=== PATIENT | male | born 1935 ===

== ENCOUNTER 2018-07-20 16:22 | Outpatient (REF) | payer MEDICARE, SELFPAY ==
[2018-07-20 21:57] LABS: ALT 38 U/L (12-78); Albumin 4.5 g/dL (3.4-5.0); BUN 35 mg/dL (7-18); CREATININE 1.61 mg/dL (0.70-1.30); Calcium 9.1 mg/dL (8.5-10.1); Chloride 104 mmol/L (98-107); Glucose 94 mg/dL (70-100); PHOSPHORUS 5.1 mg/dL (2.6-4.7); Potassium 4.5 mmol/L (3.5-5.1); Sodium 141 mmol/L (136-145)
[2018-07-20 22:35] LABS: Anion Gap 11.2 mmol/L (3-11); CO2 25.8 mmol/L (21.0-32.0); Cholesterol 128 mg/dL (50-200); HDL Cholesterol 62 mg/dL (40-60); LDL CHOLESTEROL 63 mg/dL (<100); Triglyceride 59 mg/dL (30-150)
== END 2018-07-20 16:42 ==
LOC: NCHCN 16:22
PROVIDERS: PCP Family Medicine; Visit Provider Family Medicine
DX: N18.3 Chronic kidney disease, stage 3 (moderate) (principal); E78.5 Hyperlipidemia, unspecified; I10 Essential (primary) hypertension; Z86.39 Personal history of other endocrine, nutritional and metabolic disease
CPT/HCPCS: 80061; 80069; 83721; 84460

== ENCOUNTER 2019-01-10 12:04 | Outpatient (REF) | payer MEDICARE, SELFPAY ==
[2019-01-10 21:13] LABS: Anion Gap 8.9 mmol/L (3-11); BUN 28 mg/dL (7-18); CO2 28.1 mmol/L (21.0-32.0); CREATININE 1.54 mg/dL (0.70-1.30); Calcium 8.7 mg/dL (8.5-10.1); Chloride 103 mmol/L (98-107); Estimated GFR 43.57 (mL/min/1.73m2); Glucose 122 mg/dL (70-100); PHOSPHORUS 3.3 mg/dL (2.6-4.7); Sodium 140 mmol/L (136-145)
== END 2019-01-10 12:24 ==
LOC: NCHCN 12:04
PROVIDERS: PCP Family Medicine; Visit Provider Family Medicine
DX: I10 Essential (primary) hypertension (principal); I34.1 Nonrheumatic mitral (valve) prolapse; N18.3 Chronic kidney disease, stage 3 (moderate); G20 Parkinson's disease
CPT/HCPCS: 80048; 84100

== ENCOUNTER 2019-08-01 12:33 | Outpatient (REF) | payer MEDICARE, SELFPAY ==
[2019-08-01 22:35] LABS: Anion Gap 10.4 mmol/L (3-11); BUN 31 mg/dL (7-18); CO2 26.6 mmol/L (21.0-32.0); CREATININE 1.49 mg/dL (0.70-1.30); Calcium 8.9 mg/dL (8.5-10.1); Chloride 104 mmol/L (98-107); Estimated GFR 45.27 (mL/min/1.73m2); Glucose 109 mg/dL (70-100); Potassium 4.5 mmol/L (3.5-5.1); Sodium 141 mmol/L (136-145)
== END 2019-08-01 12:53 ==
LOC: NCHCN 12:33
PROVIDERS: PCP Family Medicine; Visit Provider Family Medicine
DX: E78.5 Hyperlipidemia, unspecified (principal); I95.1 Orthostatic hypotension; G20 Parkinson's disease
CPT/HCPCS: 80048

== ENCOUNTER 2020-07-09 13:23 | Outpatient (REF) | payer MEDICARE, SELFPAY ==
[2020-07-09 21:34] LABS: Hemoglobin A1C 6.3 % (<5.7)
[2020-07-09 21:42] LABS: ALT 38 U/L (16-63); AST 25 U/L (15-37); Albumin 4.4 g/dL (3.4-5.0); Alkaline Phosphatase 66 U/L (46-116); Anion Gap 8.3 mmol/L (3-11); BUN 28 mg/dL (7-18); Bilirubin, Total 0.5 mg/dL (0.2-1.0); CO2 27.7 mmol/L (21.0-32.0); CREATININE 1.43 mg/dL (0.70-1.30); Calcium 8.8 mg/dL (8.5-10.1); Calculated LDL 75 mg/dL (<100); Chloride 105 mmol/L (98-107); Cholesterol 142 mg/dL (<200); Estimated GFR 47.35 (mL/min/1.73m2); Glucose 109 mg/dL (74-106); HDL Cholesterol 58 mg/dL (40-60); Potassium 4.5 mmol/L (3.5-5.1); Sodium 141 mmol/L (136-145); Total Protein 7.9 g/dL (6.4-8.2); Triglyceride 47 mg/dL (<150)
== END 2020-07-09 13:43 ==
LOC: NCHCN 13:23
PROVIDERS: PCP Family Medicine; Visit Provider Family Medicine
DX: R73.03 Prediabetes (principal); I10 Essential (primary) hypertension; E78.5 Hyperlipidemia, unspecified
CPT/HCPCS: 80053; 80061; 83036

== ENCOUNTER 2021-07-02 17:05 | Outpatient (REF) | payer MEDICARE, SELFPAY ==
[2021-07-02 22:08] LABS: BUN 27 mg/dL (7-18); CREATININE 1.4 mg/dL (0.70-1.30); Calcium 8.6 mg/dL (8.5-10.1); Chloride 103 mmol/L (98-107); Glucose 148 mg/dL (74-106); Potassium 4.4 mmol/L (3.5-5.1); Sodium 139 mmol/L (136-145)
== END 2021-07-02 17:06 | disposition home or self-care (01) ==
LOC: NCHCN 17:05
PROVIDERS: PCP Family Medicine; Visit Provider Family Medicine
DX: N18.30 Chronic kidney disease, stage 3 unspecified (principal); Z00.8 Encounter for other general examination
CPT/HCPCS: 80048

== ENCOUNTER 2024-07-20 16:11 | Outpatient (REF) | payer MEDICARE, MEDICAID, SELFPAY ==
[2024-07-20 21:10] LABS: HGB 10.8 g/dL (13.5-17.5); MCH 31.1 pg (27.0-33.0); MCHC 32.7 % (32.0-36.0); MCV 95 fL (80-95); Platelet Count 235 10^3/uL (130-400); RBC 3.47 10^6/uL (4.36-5.78); RDW 13.3 % (11.8-14.1); RDW-SD 46.5 fL; WBC 8.85 10^3/uL (4.4-10.8)
[2024-07-20 21:27] LABS: ALT 18 U/L (16-63); AST 15 U/L (15-37); Albumin 4.4 g/dL (3.4-5.0); Alkaline Phosphatase 68 U/L (46-116); Anion Gap 10.7 mmol/L (3-11); BUN 33 mg/dL (7-18); Bilirubin, Total 0.59 mg/dL (0.2-1.0); CO2 27.3 mmol/L (21.0-32.0); Calcium 9.2 mg/dL (8.5-10.1); Chloride 104 mmol/L (98-107); Glucose 107 mg/dL (74-106); Potassium 4.8 mmol/L (3.5-5.1); Sodium 142 mmol/L (136-145); Total Protein 7.7 g/dL (6.4-8.2)
[2024-07-21 18:05] LABS: PSA, Screening 74.1 ng/mL (<=6.5)
== END 2024-07-20 16:12 | disposition home or self-care (01) ==
LOC: NCHCN 16:11
PROVIDERS: PCP Family Medicine; Visit Provider Family Medicine
DX: R63.4 Abnormal weight loss (principal); R32 Unspecified urinary incontinence
CPT/HCPCS: 80053; 84153; 85027